=== PATIENT | female | born 1940 | race African-American/Black ===

== ENCOUNTER 2017-06-22 15:50 | Emergency (ER) | payer MEDICARE, OTHER ==
[~2017-06-22] VITALS: Ht 157.5 cm; Wt 70.0 kg
[2017-06-22 15:52] VITALS: BP 178/104; PULSE 111; RESP 15; TEMP 98.7; O2SAT 90
[2017-06-22 16:03] VITALS: PULSE 105; RESP 18; TEMP 98.2; O2SAT 98
[2017-06-22] MEDS ORDERED: diphenhydrAMINE HCL 50 MG/ML VIAL ONE (16:03)
[2017-06-22] MEDS ORDERED: methylPREDNISolone SOD SUCC 125 MG/2 ML VIAL ONE (16:04)
[2017-06-22] MEDS ORDERED: methylPREDNISolone SOD SUCC 125 MG/2 ML VIAL IV PUSH ONE (16:15)
--- NOTE | 2017-06-22 16:19 | PD ---
HPI Chief Complaint: allergic reaction Time Seen by Provider: 16:02 Travel History International Travel<30 days: No Contact w/Intl Traveler<30days: No Traveled to known affect area: No History of Present Illness HPI 77-year-old female complains of swelling in the tongue and the lips. Patient has history hypertension and on lisinopril. Patient has several episodes of tongue and lips swelling in the past. Patient states that the symptoms started this morning around 10:00 in the morning. Patient took Benadryl about an hour prior coming to the emergency room. Patient denies any headache. Patient denies any chest pain or shortness of breath. Patient denies abdominal pain. PFSH Social History Tobacco Use: No Allergies-Medications (Allergen,Severity, Reaction): Coded Allergies: lisinopril (Verified Allergy, Severe, Swelling, 06/22/17) No Known Allergies (Verified Allergy, Mild, 06/20/03) Review of Systems General / Constitutional: No: Fever Eyes: No: Visual changes HENT: No: Headaches Cardiovascular: No: Chest Pain or Discomfort Respiratory: No: Shortness of Breath Gastrointestinal: No: Abdominal Pain Genitourinary: No: Dysuria Musculoskeletal: No: Pain Skin: No Rash Neurologic: No: Weakness Psychiatric: No: Depression Endocrine: No: Polydipsia Hematologic/Lymphatic: No: Easy Bruising Physical Exam Narrative GENERAL: Well-nourished, well-developed patient. SKIN: Focused skin assessment warm/dry. HEAD: Normocephalic. EYES: No scleral icterus. No injection or drainage. Patient has edema of the tongue and the lips. NECK: Supple, trachea midline. No JVD or lymphadenopathy. CARDIOVASCULAR: Regular rate and rhythm without murmurs, gallops, or rubs. RESPIRATORY: Breath sounds equal bilaterally. No accessory muscle use. No stridor or wheezes. GASTROINTESTINAL: Abdomen soft, non-tender, nondistended. MUSCULOSKELETAL: No cyanosis, or edema. BACK: Nontender without obvious deformity. No CVA tenderness. Neurologic exam normal. Data Data Last Documented VS Orders Orders Methylprednisolone So Succ Inj (Solumedr (06/22/17 16:15) Diphenhydramine Inj (Benadryl Inj) (06/22/17 16:03) Methylprednisolone So Succ Inj (Solumedr (06/22/17 16:04) Ed Discharge Order (06/22/17 19:14) [facility] Medical Decision Making Medical Screen Exam Complete: Yes Emergency Medical Condition: Yes Differential Diagnosis Differential diagnosis including angioedema, allergic reaction. Narrative Course 77-year-old female with angioedema. Patient has history of hypertension and on lisinopril. Patient has several episodes of angioedema in the past. Patient took Benadryl prior to arrival. Solu-Medrol 125 mg IV given. 1915 p.m. Patient is doing much better. No problem with swallowing. Swelling much decreased. Patient can be discharged. Diagnosis Primary Impression: Angioedema Qualified Codes: T78.3XXA - Angioneurotic edema, initial encounter Patient Instructions: General Instructions Additional Instructions: Stop lisinopril. Follow-up with personal physician. Return if worse. Med/Other Pt SpecificInfo: Med Stopped Disposition: 01 DISCHARGE HOME Condition: Stable Scott Art MD Jun 22, 2017 16:19
[2017-06-22 17:05] VITALS: BP 165/79; PULSE 92; RESP 18; O2SAT 99
[2017-06-22 18:16] VITALS: BP 187/92; PULSE 97; RESP 18; TEMP 98.1; O2SAT 100
== END 2017-06-22 19:34 | disposition home or self-care (01) ==
LOC: NEPE 15:50
DX: T78.3XXA Angioneurotic edema, initial encounter (principal); I10 Essential (primary) hypertension
CPT/HCPCS: 96374; 99284; J1200; J2930